=== PATIENT | male | born 1975 | race Caucasian/White ===

== ENCOUNTER 2017-01-20 04:52 | Emergency (ER) | payer OTHER ==
[~2017-01-20] VITALS: Ht 157.5 cm; Wt 82.0 kg
[2017-01-20 04:58] VITALS: Ht 157.5 cm; Wt 82.0 kg
[2017-01-20] MEDS ORDERED: KETOROLAC 30 MG INJ IV STA (07:34)
[2017-01-20] MEDS ORDERED: SOD CHLORIDE 0.9% 1,000 ML IV STA (07:34)
[2017-01-20] MEDS ORDERED: FAMOTIDINE 20 MG INJ IV STA (07:34)
[2017-01-20 07:59] LABS: URINE BLOOD (Dip) POC Negative (NEGATIVE)
[2017-01-20 08:26] LABS: ADD SCAN DIFF NO
[2017-01-20 08:35] LABS: BASOPHILS % 0.4 % (0.0-2.0); EOSINOPHILS % 0.5 % (0.0-7.0); HEMATOCRIT 42.9 % (42.0-52.0); HEMOGLOBIN 15.4 g/dl (14.0-18.0); LYMPHOCYTES # 1.4 10^3/ul (0.8-2.9); LYMPHOCYTES % 25.2 % (15.0-51.0); MEAN CORPUSCULAR HEMOGLOBIN 31.6 pg (29.0-33.0); MEAN CORPUSCULAR HGB CONC 35.9 g/dl (32.0-37.0); MEAN CORPUSCULAR VOLUME 87.9 fl (82.0-101.0); MEAN PLATELET VOLUME 9.6 fl (7.4-10.4); MONOCYTE # 0.4 10^3/ul (0.3-0.9); MONOCYTES % 7.1 % (0.0-11.0); NEUTROPHIL # 3.7 10^3/ul (1.6-7.5); NEUTROPHILS % 66.4 % (39.0-77.0); PLATELET COUNT 257 10^3/UL (140-415); RED BLOOD COUNT 4.88 10^6/ul (4.70-6.10); RED CELL DISTRIBUTION WIDTH 11.5 % (11.5-14.5); WHITE BLOOD COUNT 5.5 10^3/ul (4.8-10.8)
[2017-01-20 08:39] LABS: ALBUMIN 4.5 g/dl (3.3-4.9)
[2017-01-20 08:42] LABS: ALBUMIN/GLOBULIN RATIO 1.32; BILIRUBIN,INDIRECT 0.4 mg/dl (0-1.1); BILIRUBIN,TOTAL 0.4 mg/dl (0.2-1.3); CREATININE 0.61 mg/dl (0.61-1.24); TOTAL PROTEIN 7.9 g/dl (6.1-8.1)
[2017-01-20 08:43] LABS: CALCIUM 9.2 mg/dl (8.4-10.2)
[2017-01-20] MEDS ORDERED: IBUP-1542 PO (09:20)
--- NOTE | 2017-01-20 09:20 | ERD ---
ER Documentation Chief Complaint Date/Time DATE: 01/20/17 Chief Complaint Headache HPI The patient is a 42-year-old male who presents to the Emergency Department with complaint of a headache since last night. The patient reports that he was up late last night, and at approximately 2:00 am began to experience a gradual-in- onset bitemporal headache. The headache is throbbing in nature, and radiates occipitally. He rates his current pain as 6/10, but notes that he has not yet taken any medications for pain relief. He admits to mild generalized weakness, but no focal deficits. He denies any dizziness, nausea, vomiting. Denies recent URI-type symptoms, cough, rhinorrhea, nasal congestion, facial pain. Denies fevers or chills. Denies chest pain, palpitations, diaphoresis, shortness of breath or cough. The patient notes that he has experienced similar symptoms in the past, the last episode of which was approximately one month ago. He denies recent head injury/trauma, syncope, seizure-like activity. Denies any change in mentation, difficulty with speech, ambulation or vision. ROS All systems reviewed and are negative except as per history of present illness. Medications Home Meds Active Scripts Ibuprofen* (Ibuprofen*) 600 Mg Tablet, 600 MG PO Q6, #20 TAB Prov:ALEXEI ZARATE PA-C 01/20/17 PMhx/Soc Medical and Surgical Hx: pt denies Medical Hx, pt denies Surgical Hx Physical Exam Vitals Vital Signs Date Time Temp Pulse Resp B/P Pulse Ox O2 Delivery O2 Flow Rate FiO2 01/20/17 04:58 97.4 73 20 136/65 100 Physical Exam GENERAL: Well-developed, well-nourished, in no acute distress HEENT: Head is normocephalic, atraumatic. No scleral pallor or icterus. Pupils equal, round and reactive to light. Extraocular movements intact. Conjunctiva pink. No nystagmus. No photophobia. Bilaterally tympanic membranes are clear with no evidence of erythema, effusion or dulling of the light reflex. Moist mucous membranes. No pharyngeal erythema or exudates. Uvula is midline. NECK: Supple. No masses, no tenderness, no lymphadenopathy. Trachea midline. No nuchal rigidity. Full range of motion. RESPIRATORY: Lungs are clear to auscultation bilaterally. Equal breath sounds. Normal expiratory effort. CARDIOVASCULAR: Regular rate and rhythm. S1 and S2 normal. No murmurs, rubs, or gallops. GASTROINTESTINAL: Abdomen is soft, nontender, and nondistended. Positive bowel sounds. EXTREMITIES: No clubbing, cyanosis, or edema. Normal skin perfusion. Moving all extremities. No focal swelling or erythema. Distal pulses are palpable, 2+ bilaterally. Capillary refill is less than 2 seconds. NEUROLOGIC: The patient is awake, alert, oriented to person, place and time. Speech is fluent. Language parameters are intact. Follows commands well. Comprehension is intact. Cranial nerves II through XII are intact. Pupils are equal and reactive bilaterally. Extraocular movements are intact. There is no nystagmus. Facial sensation and facial movements are symmetrical. Uvula elevates symmetrically. Tongue is midline. Motor examination reveals 5/5 strength in bilateral upper and lower extremities. Sensory examination is grossly intact to light touch. Reflexes symmetrical. Normal [id number] testing. No visual field deficits. Vision grossly intact. Gait is observed and normal, no ataxia. INTEGUMENT: Skin is clean, dry and intact. No rashes, lesions or petechiae present. PSYCHIATRIC: Appropriate; Cooperative. Result Diagram: 01/20/17 0759 01/20/17 0759 Results 24 hrs Laboratory Tests Test 01/20/17 07:58 01/20/17 07:59 Bedside Urine Blood Negative Bedside Urine Glucose (UA) Negative Bedside Urine Ketones (LAB) Negative Bedside Urine Leukocyte Esterase (L Negative Bedside Urine Nitrite (LAB) Negative Bedside Urine Protein (LAB) Negative Bedside Urine pH (LAB) 5.5 Alanine Aminotransferase (ALT/SGPT) 78IU/L Albumin 4.5g/dl Albumin/Globulin Ratio 1.32 Alkaline Phosphatase 87IU/L Anion Gap 16 Aspartate Amino Transf (AST/SGOT) 57IU/L Basophils # 0.010^3/ul Basophils % 0.4% Blood Urea Nitrogen 8mg/dl Calcium Level 9.2mg/dl Carbon Dioxide Level 28mmol/L Chloride Level 105mmol/L Creatinine 0.61mg/dl Direct Bilirubin 0.00mg/dl Eosinophils # 0.010^3/ul Eosinophils % 0.5% Globulin 3.40g/dl Glucose Level 99mg/dl Hematocrit 42.9% Hemoglobin 15.4g/dl Indirect Bilirubin 0.4mg/dl Lymphocytes # 1.410^3/ul Lymphocytes % 25.2% Mean Corpuscular Hemoglobin 31.6pg Mean Corpuscular Hemoglobin Concent 35.9g/dl Mean Corpuscular Volume 87.9fl Mean Platelet Volume 9.6fl Monocytes # 0.410^3/ul Monocytes % 7.1% Neutrophils # 3.710^3/ul Neutrophils % 66.4% Nucleated Red Blood Cells # 0.010^3/ul Nucleated Red Blood Cells % 0.0/100WBC Platelet Count 39973^3/UL Potassium Level 4.0mmol/L Red Blood Count 4.8810^6/ul Red Cell Distribution Width 11.5% Sodium Level 145mmol/L Total Bilirubin 0.4mg/dl Total Protein 7.9g/dl White Blood Count 5.510^3/ul Current Medications Medications (Trade) Dose Ordered Sig/Sohan Route PRN Reason Start Time Stop Time Status Last Admin Dose Admin Sodium Chloride (NS) 1,000 ml @ 1,000 mls/hr Q1H STAT IV 01/20/17 07:34 01/20/17 08:33 DC 01/20/17 07:48 Famotidine (Pepcid Iv) 20 mg ONCE STAT IV 01/20/17 07:34 01/20/17 07:36 DC 01/20/17 07:47 Ketorolac Tromethamine (Toradol) 30 mg ONCE STAT IV 01/20/17 07:34 01/20/17 07:36 DC 01/20/17 07:47 Procedures/MDM EKG: Reviewed and interpreted by: Dr. Christensen EKG Interpretation: Normal sinus rhythm. Rate 65 bpm. Nonspecific T wave changes. Normal axis. No ectopy. No LBBB. MEDICAL DECISION MAKING: This is a 42-year-old male presenting to the emergency department with a bitemporal headache radiating to the occipital region. The patient had no significant abnormalities on physical examination, exhibited no altered mental status, neurologic deficits or meningeal signs. The differential diagnosis includes, but is not limited to, subarachnoid hemorrhage , intracerebral bleeding, cerebral aneurysm, meningitis, encephalitis, brain abscess, embolic stroke, brain tumor, temporal arteritis, sinusitis, migraine headache, tension headache, acute glaucoma, cluster headache, pseudotumor cerebri, encephalopathy. His condition improved during his stay. EKG and laboratory testing performed, with no significant abnormalities noted. After rest and administration of 30 mg toradol and a liter of fluids the patient reports no new complaints and resolved pain. Upon my review and interpretation of the patient's presentation and overall ER course, I believe the patient's symptoms are most consistent with a headache, now resolved. At this time, I do not think that a CT scan or lumbar puncture is necessary, given that the patient's symptoms and pain have resolved, were gradual in onset, and similar to his prior headaches. The patient is in stable condition with stable vital signs and no longer experiencing any pain, and therefore can be discharged home with a prescription for ibuprofen and strict return precautions for signs of deteriorating or worsening condition. He is advised to follow up with his primary care provider for reevaluation and further management within 1-2 days, or to return to the ER sooner for any worsening symptoms. I shared my medical decision making and plan with the patient at length and in great detail, and the patient verbally understands and agrees with the plan for further observation and care as an outpatient. At the time of discharge, all questions were answered. Departure Diagnosis: Primary Impression: Headache Headache type: unspecified Headache chronicity pattern: acute headache Intractability: not intractable Qualified Code: R51 - Acute nonintractable headache, unspecified headache type Condition: Stable Patient Instructions: Headache, Unspecified, Self-Care for Headaches Additional Instructions: Call your primary care doctor TOMORROW for an appointment during the next 1-2 days.See the doctor sooner or return here if your condition worsens before your appointment time. Llame al doctor MAANA y whitley ana ESTELA PARA DENTRO DE 1-2 PEDRAZA.Dgale a la secretaria que nosotros le instruimos hacer esta estela.Avise o llame si santa condicin se empeora antes de la estela. Regresa aqui si peor o no mejor. ALEXEI ZARATE PA-C Jan 20, 2017 09:19
== END 2017-01-20 09:41 | disposition home or self-care (01) ==
LOC: FTE 04:52
DX: R51 Headache (principal); R53.1 Weakness
CPT/HCPCS: 36415; 80053; 81003; 85025; 87400; 93005; 96374; 96375; 99284; J1885; J7030